=== PATIENT | female | born 1945 | race Caucasian/White ===

== ENCOUNTER 2017-03-29 20:31 | Inpatient (IN) ==
[2017-03-29] MEDS ORDERED: LR 1,000 ML IV PRN ×2 (20:48→20:56)
[2017-03-29 20:52] LABS: MANUAL DIFF NEEDED? NO
[2017-03-29] MEDS ORDERED: ZOFRAN IV ONE (20:56)
[2017-03-29 21:14] LABS: HEMOGLOBIN A1C 6.5 % (4.8-6.0)
[2017-03-29 21:20] LABS: ALBUMIN 4.1 g/dL (3.5-5.0); CALCIUM 8.8 mg/dL (8.8-10.2); POTASSIUM 4.9 mmol/L (3.5-5.1); TOTAL BILIRUBIN 0.7 mg/dL (0.20-1.00); TOTAL PROTEIN 6.4 g/dL (6.3-8.3)
[2017-03-29 21:21] LABS: BASO% 0.2 % (0.0-0.8); EOS# 0.07 X1000 (0.0-0.7); EOS% 0.7 % (0.0-10.0); HEMATOCRIT 32.1 % (37.0-47.0); HEMOGLOBIN 10.2 g/dL (12.0-16.0); IMM GRAN# 0.02 X1000 (0.0-0.04); IMM GRAN% 0.2 % (0.0-0.5); LYMPH# 0.29 X1000 (1.2-3.4); MCH 27.6 PG (27-31); MCHC 31.8 g/dL (33-37); MCV 86.8 FL (81-99); MONO# 0.36 X1000 (0.11-0.59); MONO% 3.8 % (1.7-9.3); MPV 12.2 FL (7.4-10.4); NEUT% 92.1 % (42.2-75.2); PLT 113 X1000 (130-400)
--- NOTE | 2017-03-29 22:15 | Diag Imaging Result Doc PS360 ---
EXAM: FLAT/UPRIGHT ABD/1 VIEW CHEST HISTORY: N/V TECHNIQUE: Three views COMPARISON: 08/10/2016 FINDINGS: Known mass in the left upper lobe. This has not increased in size. No infiltrates. No free air beneath the diaphragm. Marked atherosclerosis. The gallbladder has been removed. No organomegaly. Mild air distended loop of bowel mid right abdomen. Old injury to the right pelvis with prior orthopedic replacement of the left hip. Prominent degenerative spine changes with mild scoliosis. IMPRESSION: Mild air distended loop of bowel in the mid right abdomen may represent an ileus. Follow-up films recommended. Electronically signed by Gómez Nunez 03/29/2017 10:13 PM
[2017-03-29] MEDS ORDERED: LEVAQUIN 750 MG in NS 150 ML IV ONE (23:42)
[2017-03-29 23:49] LABS: BILIRUBIN URINE NEGATIVE (NEGATIVE); BLOOD URINE 4+ (NEGATIVE); CLARITY VERY CLOUDY (CLEAR); COLOR YELLOW; GLUCOSE URINE NEGATIVE (NEGATIVE); LEUKOCYTES URINE 2+ (NEGATIVE); NITRITE URINE NEGATIVE (NEGATIVE); PROTEIN URINE 2+(100 mg/dL) mg/dL (NEGATIVE); UROBILINOGEN URINE NORMAL
[2017-03-30] MEDS ORDERED: TYLENOL PO ONE (00:02)
[2017-03-30] MEDS ORDERED: ULTRAM PO ONE (00:02)
[2017-03-30 00:05] LABS: URINE CULTURE PL NEEDED? YES; URINE EPITHELIAL CELLS <10 /HPF (<10); URINE RBC 20-40 /HPF (<10); URINE WBC TNTC /HPF (<10)
[2017-03-30 00:06] LABS: URINE SOURCE CLEAN CATCH
[2017-03-30] MEDS ORDERED: NS 1,000 ML IV ONE (00:08)
[2017-03-30] MEDS ORDERED: ZOFRAN PO PRN (00:08)
--- NOTE | 2017-03-30 00:08 | PROVIDER DOCUMENTATION ---
This chart was entered by Maru Yuan Scribe, acting as scribe for Cuco Aguilera MD. HPI-Abdominal Pain/GI Problem - General Chief Complaint: Nausea/Vomiting Stated Complaint: n/v Time Seen by Provider: 03/29/17 20:47 Source: patient Allergies/Adverse Reactions: Patient Allergies Allergy/AdvReac Type Severity Reaction Status Date / Time Penicillins Allergy Intermediate HIVES Verified 03/29/17 20:42 latex Allergy HIVES Verified 03/29/17 20:42 Home Medications: Home Medication List Medication Instructions Recorded Confirmed Last Taken Type Furosemide 40 mg PO DAILY 01/14/13 08/10/16 03/29/17 History Spironolactone [Aldactone] 50 mg PO DAILY 01/14/13 08/10/16 03/29/17 History Lisinopril [Zestril] 2.5 mg PO DAILY 10/26/14 08/10/16 03/29/17 History Montelukast Sodium [Singulair] 10 mg PO QHS 10/26/14 08/15/16 03/29/17 History Warfarin [Coumadin] 5 mg PO QHS 10/26/14 08/10/16 03/29/17 History Ambrisentan [Letairis] 5 mg PO DAILY 08/10/16 08/10/16 03/29/17 History Atenolol 50 mg PO DAILY 08/10/16 08/10/16 03/29/17 History Cetirizine HCl [Zyrtec] 10 mg PO DAILY 08/10/16 08/10/16 03/29/17 History Paroxetine HCl [Paxil] 40 mg PO DAILY 08/14/16 08/14/16 03/29/17 History Tramadol [Ultram] 50 mg PO PRN PRN #30 tablet 08/15/16 03/29/17 Rx Alprazolam [Xanax] 0.25 mg PO BID 03/29/17 03/29/17 03/29/17 History Glipizide [Glucotrol] 5 mg PO DAILY 03/29/17 03/29/17 03/29/17 History Metformin HCl [Metformin HCl] 1,000 mg PO BID 03/29/17 03/29/17 03/29/17 History - History of Present Illness-ABD Nature of Presenting Problems: Pt is a 71 year old female who came to the ED with a cc of N/V/D and fever since this afternoon. Pt reports that she ate a tv dinner and felt fine. Pt reports she took a nap and woke up feverish and N/V/D. Pt reports last night she was having discomfort with urination. Abdominal Pain Onset Location: reports: suprapubic Pain Radiation: reports: no radiation Quality of Pain: reports: cramping Severity in ED: reports: mild Onset/Duration: reports: this evening Timing: reports: still present Associated Symptoms: reports: fever/chills, nausea, vomiting, weakness Dark Stools Present?: reports: none noticed Rectal Bleeding: reports: none Bruising or Bleeding Gums?: No Similar Symptoms Previously?: No Recently seen or treated by another doctor?: No Review of Systems - Adult - REVIEW OF SYSTEMS - ADULT Constitutional: reports: chills, fever. denies: fatique, weight loss Eyes: reports: no symptoms reported Ears, Nose, Mouth & Throat: reports: no symptoms reported Cardiovascular: reports: no symptoms reported Respiratory: reports: no symptoms reported Gastrointestinal: reports: abdominal pain, diarrhea, nausea, vomiting. denies: difficulty swallowing, frequent heartburn Genitourinary: reports: dysuria, urinary retention. denies: flank pain, hesitency Musculoskeletal: reports: no symptoms reported Integumentary: reports: no symptoms reported Neurological: denies: ataxia, paresthesia Psychiatric: reports: no symptoms reported Endocrine: reports: no symptoms reported Hematologic/Lymphatic: reports: no symptoms reported Allergic/Immunologic: reports: no symptoms reported All Other Systems: Reviewed and Negative Past History - Adult - PAST MEDICAL HISTORY-ADULT Review of Records: reports: Nursing Assessment Review Major Childhood Illnesses: reports: denies history Cardiovascular: reports: A-Fib, HTN, hyperlipidemia, [place] Respiratory: reports: asthma, COPD Gastrointestinal: reports: liver disease (cirrhosis of the liver) Obstetrical/Gynecological: reports: denies history Genitourinary: reports: kidney disease Musculoskeletal: reports: arthritis, fibromyalgia Neurological: reports: CVA (2000; 2012) Endocrine/Immune: reports: Diabetes Other Conditions: reports: cataract/glaucoma (cataract) - PRIOR SURGERIES/PROCEDURES Surgical/Procedure History: reports: cholecystectomy, , orthopedic ( extremity) (bunion removed from right foot; tumor removed from L shoulder), joint replacement (total hip replacement), other (cataract removal) - IMMUNIZATION STATUS Childhood Immunizations: UTD Flu Vaccine: UTD - FAMILY HISTORY Family History: reviewed, not pertinent Physical Exam-General - PHYSICAL EXAM-ADULT Initial Vital Signs Reviewed: Yes - CONSTITUTIONAL General Appearance: alert, no apparent distress - EYES Eyes: PERRL/EOMI, pink conjunctivae - HEAD, EARS, NOSE, MOUTH & THROAT HENMT: normocephalic/atraumatic, moist mucous membranes - NECK Neck: non-tender, full range of motion - RESPIRATORY Respiratory: chest non-tender, lungs clear - CARDIOVASCULAR Cardiovascular: systolic murmur (2/6), irregularly irregular - GASTROINTESTINAL (ABDOMEN) Abdominal Exam: normal bowel sounds, tenderness (suprapubic) - MUSCULOSKELETAL Back Exam: normal inspection, no CVA tenderness Extremity: normal range of motion, non-tender - SKIN Integumentary: normal color, normal turgor - NEUROLOGIC Neurologic: grossly normal - PSYCHIATRIC Psych/Mental Status: normal mood/affect, normal thought content, normal thought process, oriented x 3 Progress - PLAN OF CARE/RESULTS Progress/Plan/Lab Results: Vital Signs - 8 hr 03/29/17 20:34 Temperature 101.4 F H Pulse Rate 111 H Respiratory Rate 22 Blood Pressure 112/061 O2 Sat by Pulse Oximetry 96 Orders Category Date Time Status FLAT/UPRIGHT ABD/1 VIEW CHEST [RAD] Stat Exams 03/29/17 20:49 Ordered A1C HGB W EST AVG GLUCOSE [CHEM] Stat Lab 03/29/17 20:40 Received BLOOD CULTURE [BLDCUL] Stat Lab 03/29/17 20:57 Ordered CBC WITH DIFF [HEME] Stat Lab 03/29/17 20:40 Results COMPREHENSIVE METABOLIC PANEL [CHEM] Stat Lab 03/29/17 20:[address] W/POSS RFLX CULT [URINALYSIS] Stat Lab 03/29/17 20:49 Uncollected Lactated Ringers Inj [Lr] 1,000 ml Med 03/29/17 20:48 Discontinued IV 100 mls/hr Lactated Ringers Inj [Lr] 1,000 ml Med 03/29/17 20:56 Active IV 250 mls/hr Ondansetron [Zofran] Med 03/29/17 20:56 Discontinued 4 mg IV NOW ONE Result Diagrams: 03/29/17 20:40 06/11/17 20:40 - XRAY 1 XRAY Study: Chest (STABLE CHEST. LEFT LOWER LOBE HAZINESS POSSIBLE INFILTRATE) Departure - Departure Date of Disposition Decision: 03/30/17 Time of Disposition Decision: 00:07 DIAGNOSIS: Pyelonephritis, acute Disposition: ADMITTED INPATIENT 09 Certified Medical Emergency: Emergent Condition: Stable Referrals and Follow-Ups: None,PCP [Primary Care Provider] - - Critical Care Note This patient required my direct & personal management of CC.: No This chart was documented by the indicated scribe, (Maru Yuan Scribe) and accurately reflects the services I performed and decisions made by me, Cuco Aguilera MD, as attested by the provider's signature.
[2017-03-30] MEDS ORDERED: LEVAQUIN 750 MG/D5W 750 MG/150 ML IVPB ONE (00:10)
[2017-03-30 00:28] LABS: INR 2.34 (0.86-1.15); PROTIME 25.7 Seconds (12.1-15.5)
[2017-03-30 00:31] LABS: PTT PL 34.9 Seconds (22.6-43.9)
[2017-03-30] MEDS ORDERED: LEVAQUIN 750 MG/D5W 750 MG/150 ML IVPB IV ONE (01:00)
[2017-03-30] MEDS ORDERED: NS 500 ML IV ONE (01:29)
[2017-03-30] MEDS ORDERED: NS 1,000 ML ONE ×2 (02:43→08:15)
[2017-03-30] MEDS: TYLENOL PO PRN ×2 (06:31→17:40)
[2017-03-30 07:18] LABS: HEMATOCRIT 26.8 % (37.0-47.0); HEMOGLOBIN 8.5 g/dL (12.0-16.0); MCH 27.8 PG (27-31); MCHC 31.7 g/dL (33-37); MCV 87.6 FL (81-99); MPV 11.9 FL (7.4-10.4); RBC 3.06 XMIL (4.2-5.4)
[2017-03-30 07:39] LABS: ALBUMIN 3.4 g/dL (3.5-5.0); CALCIUM 7.9 mg/dL (8.8-10.2); MAGNESIUM 1.8 mg/dL (1.5-2.7); POTASSIUM 5.6 mmol/L (3.5-5.1); TOTAL BILIRUBIN 1.1 mg/dL (0.20-1.00); TOTAL PROTEIN 5.3 g/dL (6.3-8.3)
[2017-03-30] MEDS: NS 1,000 ML IV SCH ×2 (08:37→17:11)
[2017-03-30] MEDS ORDERED: ZOFRAN ODT PO PRN (10:07)
[2017-03-30] MEDS: PROTONIX IV SCH ×2 (11:47→23:03)
[2017-03-30] MEDS: SODIUM CHLORIDE 0.9% INJ SCH ×2 (11:47→23:03)
--- NOTE | 2017-03-30 16:01 | HISTORY AND PHYSICAL ---
CHIEF COMPLAINT: Nausea, vomiting, diarrhea. HISTORY OF PRESENT ILLNESS: This is a 71-year-old female who presented to the emergency room complaining of 7 episodes of nausea, vomiting and diarrhea 4-6 hours prior to coming to the emergency room. She states that she woke up after a nap and felt feverish and then symptoms began. She did state that over the last 4-5 days that she has had burning on urination as well as some frequency and urgency. She did state that it feels like her UTI symptoms in the past. She was found to have a creatinine of 1.9 with a white count of 9.5, although she did have a temperature of 101.4 degrees on arrival. Blood cultures and urine cultures were obtained in the emergency room as well as an abdominal x-ray that revealed a mild air distended loop of bowel in the mid right abdomen that could represent an ileus. She was given IV hydration as well as Levaquin and is admitted for further evaluation and treatment. PAST MEDICAL HISTORY: Pulmonary hypertension, [place], CVA, hypertension, diabetes type 2, hyperlipidemia and history of cirrhosis in the past. PAST SURGICAL HISTORY: A skin tumor removed from her back, cholecystectomy, left hip replacement. ALLERGIES: Penicillin. CURRENT MEDICATIONS: A list will be obtained. SOCIAL HISTORY: She denies alcohol, tobacco, or illicit drug use. She does have a history of alcohol use but she quit about 10 years ago. REVIEW OF SYSTEMS: Otherwise negative with positives stated in the HPI. PHYSICAL EXAMINATION: GENERAL: This is a 71-year-old female who is lying in the bed in no distress. HEENT: Head is normocephalic, atraumatic. Pupils equal, round, react to light. EOMs are intact. Sclerae anicteric. Mucous membranes are dry. NECK: Supple with trachea midline. CARDIOVASCULAR: Regular rate and rhythm, S1, S2 appreciated. PULMONARY: Breath sounds are clear with no increased work of breathing noted. GASTROINTESTINAL: Abdomen is soft, nontender, nondistended with bowel sounds in all 4 quadrants. EXTREMITIES: No clubbing, cyanosis, or edema. Calves are nontender. Pulses are palpable x4. NEUROLOGIC: She is alert and oriented x3 with cranial nerves 2-12 grossly intact. : Fu is patent to bedside bag with urine clear yellow. SKIN: Warm and dry. DIAGNOSTICS: WBC is 9.5 with hemoglobin 10.2, hematocrit 32.1 and platelets of 113,000. INR is 2.34. Sodium is 135, potassium 4.9, BUN 63, creatinine 1.9 with a glucose of 281. Hemoglobin A1c is 6.5 with urinalysis microscopic 20-40 red blood cells, too numerous to count white blood cells and 4+ bacteria. Abdominal x-ray revealed a mild air distended loop of bowel in the mid right abdomen which may represent an ileus. Chest x-ray, known mass in the left upper lobe that is not increased in size. No infiltrate. ASSESSMENT AND PLAN: 1. Nausea, vomiting and diarrhea. 2. Fever. 3. Hypotension. 4. Probable urinary tract infection. 5. Anemia. Questionable blood loss. 6. Hyponatremia. 7. Acute kidney injury. PLAN: The patient has been admitted to the hospital. We placed on telemetry. She has no abdominal pain. She has had 1 bowel movement since arrival. Will go ahead and give clear liquids and advance as tolerated. As she does have a low hemoglobin and hematocrit will Hemoccult stools. Urine culture is pending. She was given Levaquin in the emergency room. The patient denied any black or bloody stools or vomitus although the daughter did state the patient told her that she had black vomitus prior to coming to the emergency room. Anyway will monitor. We will give IV hydration. Will obtain a CBC at 4 o'clock today and then check in the morning. Will give IV hydration. The patient states that she does get yeast and had stomach problems taking any antibiotics. We will start her on probiotics twice a day. She does chronically take Xanax. We will continue this dose to avoid any withdrawal. She is on warfarin, will hold warfarin at present. She will be placed on pattern blood glucose with sliding scale insulin. Will hold all antihypertensives as well as antidiabetic medications as she is not eating at present. Further treatments pending hospital course. Dictated by YOLANDE Mckeon for Arnoldo Chan MD cc: YOLANDE Mckeon MD
[2017-03-30 16:42] LABS: BASO% 0.1 % (0.0-0.8); EOS# 0.12 X1000 (0.0-0.7); EOS% 1.5 % (0.0-10.0); HEMATOCRIT 28.1 % (37.0-47.0); HEMOGLOBIN 8.9 g/dL (12.0-16.0); IMM GRAN# 0.01 X1000 (0.0-0.04); IMM GRAN% 0.1 % (0.0-0.5); LYMPH# 0.62 X1000 (1.2-3.4); LYMPH% 7.8 % (20.5-51.1); MANUAL DIFF NEEDED? YES; MCHC 31.7 g/dL (33-37); MCV 88.4 FL (81-99); MONO# 0.32 X1000 (0.11-0.59); MPV 11.9 FL (7.4-10.4); NEUT% 86.5 % (42.2-75.2); PLT 74 X1000 (130-400); RBC 3.18 XMIL (4.2-5.4)
[2017-03-30 16:48] LABS: EOS 2 % (1-10); LYMPHS 9 % (21-51); MONO 4 % (1-9)
[2017-03-30] MEDS ORDERED: LEVAQUIN 500 MG in NS 100 ML IV SCH (23:00)
[2017-03-30] MEDS: CULTURELLE PO SCH (23:03)
[2017-03-30] MEDS: XANAX PO PRN (23:03)
[2017-03-31] MEDS: TYLENOL PO PRN (02:22)
[2017-03-31] MEDS: NS 1,000 ML IV SCH (02:24)
[2017-03-31 05:48] LABS: MANUAL DIFF NEEDED? NO
[2017-03-31 06:01] LABS: BASO% 0.2 % (0.0-0.8); EOS# 0.17 X1000 (0.0-0.7); EOS% 2.7 % (0.0-10.0); HEMATOCRIT 29.6 % (37.0-47.0); HEMOGLOBIN 9.3 g/dL (12.0-16.0); IMM GRAN# 0.01 X1000 (0.0-0.04); IMM GRAN% 0.2 % (0.0-0.5); LYMPH% 10.9 % (20.5-51.1); MCH 27.7 PG (27-31); MCHC 31.4 g/dL (33-37); MCV 88.1 FL (81-99); MONO# 0.26 X1000 (0.11-0.59); MONO% 4.1 % (1.7-9.3); MPV 12.1 FL (7.4-10.4); NEUT% 81.9 % (42.2-75.2); PLT 75 X1000 (130-400); RBC 3.36 XMIL (4.2-5.4)
[2017-03-31 06:04] LABS: INR 2.14 (0.86-1.15)
[2017-03-31 06:19] LABS: CALCIUM 8.2 mg/dL (8.8-10.2); POTASSIUM 4.7 mmol/L (3.5-5.1)
--- NOTE | 2017-03-31 07:57 | PROGRESS NOTE ---
DATE: 03/31/2017 SUBJECTIVE: The patient notes that she had a bad night. States that she is having cold chills in her hair. States that she had an episode where she became overstimulated last night and became anxious and her heart rate elevated to 99. Otherwise, she denies any nausea, vomiting. Denies any dysuria, urinary frequency. Denies any constipation. OBJECTIVE: Vital Signs: Temperature 98.4, pulse 90, blood pressure 115/55, saturation 98% on room air. General: Patient is awake, alert. She is currently in no respiratory distress. She was on telemetry last night during the episode and she had no further events and no electrical dysrhythmia. HEENT: Normocephalic, atraumatic. SHERMAN. EOMI. Neck: Supple. CV: Regular rate. Chest: Clear. Abdomen: Soft. Extremities: Moves all extremities. Neurologic: No changes. ASSESSMENT: 1. Nausea and vomiting. Will advance diet. 2. Fever. The patient has not had any fever since in the hospital. 3. Urinary tract infection. Her urine culture is still pending. 4. Anemia. Hemoglobin and hematocrit is improved at 9.3 and 29. Uncertain etiology of her current anemia. She certainly will need to have a gastrointestinal workup as an outpatient. 5. [id number] renal failure, stable. 6. Hyperkalemia, resolved. PLAN: We will saline lock. Change her diet to regular. Change her to p.o. Levaquin and follow. Hopefully home this afternoon. Certainly if not by tomorrow. cc: Arnoldo Chan MD
[2017-03-31] MEDS: PRINIVIL PO SCH (09:30)
[2017-03-31] MEDS: TENORMIN PO SCH (09:31)
[2017-03-31] MEDS: GLUCOPHAGE PO SCH ×2 (09:31→17:51)
[2017-03-31] MEDS: PAXIL PO SCH (09:31)
[2017-03-31] MEDS: XANAX PO PRN ×2 (09:32→21:16)
[2017-03-31] MEDS: CULTURELLE PO SCH ×2 (09:32→21:16)
[2017-03-31] MEDS: PROTONIX IV SCH ×2 (12:49→23:03)
[2017-03-31] MEDS: PATIENT'S OWN MED PO SCH (12:49)
[2017-03-31] MEDS: COUMADIN PO SCH (21:16)
[2017-03-31] MEDS: LEVAQUIN PO SCH (21:16)
[2017-03-31] MEDS: SINGULAIR PO SCH (21:16)
[2017-03-31] MEDS: ULTRAM PO PRN (21:16)
[2017-04-01 06:21] LABS: INR 1.65 (0.86-1.15); PROTIME 19.7 Seconds (12.1-15.5)
[2017-04-01] MEDS: GLUCOPHAGE PO SCH ×2 (08:58→16:48)
[2017-04-01] MEDS: CULTURELLE PO SCH ×2 (08:59→20:47)
[2017-04-01] MEDS: PAXIL PO SCH (08:59)
[2017-04-01] MEDS: PRINIVIL PO SCH ×2 (08:59→09:12)
[2017-04-01] MEDS: PATIENT'S OWN MED PO SCH ×2 (09:00→16:49)
[2017-04-01] MEDS: TENORMIN PO SCH (09:00)
[2017-04-01] MEDS: SODIUM CHLORIDE 0.9% INJ SCH (10:23)
[2017-04-01] MEDS: PROTONIX IV SCH ×2 (10:23→22:36)
[2017-04-01 10:43] LABS: OCCULT BLOOD 1 NEGATIVE (NEGATIVE)
--- NOTE | 2017-04-01 14:05 | PROGRESS NOTE ---
DATE: 04/01/2017 SUBJECTIVE: The patient states that she did not sleep well last night. She is uncomfortable in this bed. She denied any nausea, vomiting, any dysuria, any hematuria, diarrhea or constipation. OBJECTIVE: Vital Signs: Blood pressure is 135/56 with a heart rate of 82, respirations are 20, temperature is 98 degrees, with room air saturations of 95%-96%. Cardiovascular: Regular rate and rhythm. S1 and S2 appreciated. Pulmonary: Breath sounds are clear with no increased work of breathing noted. Gastrointestinal: Soft, nontender, nondistended, with bowel sounds in all 4 quadrants. Neurologic: She is alert and oriented. Extremities: No clubbing, cyanosis, or edema. Calves are nontender. Pulses are palpable x4. LABS: INR is 1.65. Blood glucose is ranging from 173 to 236. Microbiology: Urine culture is gram-positive cocci with sensitivities to follow. ASSESSMENT: 1. Nausea and vomiting. She has had no further nausea and vomiting since admission. Her diet has been advanced to regular diet which she has tolerated well. 2. Fevers. She remains afebrile since admission. 3. Urinary tract infection, gram positive cocci with sensitivities pending. 4. Anemia. Hemoglobin and hematocrit is stable. 5. Acute on chronic renal failure. This is stable. 6. Hyperkalemia. Resolved. We will continue with the current treatment. Continue with Levaquin p.o. Once sensitivities returned, antibiotics may be changed as appropriate and she can be discharged home on the appropriate antibiotic coverage. Dictated by YOLANDE Mckeon for Arnoldo Chan MD cc: YOLANDE Mckeon MD
[2017-04-01] MEDS: COUMADIN PO SCH (20:46)
[2017-04-01] MEDS: SINGULAIR PO SCH (20:47)
[2017-04-01] MEDS: LEVAQUIN PO SCH (20:47)
[2017-04-01] MEDS: XANAX PO PRN (20:48)
[2017-04-01] MEDS: ULTRAM PO PRN (20:48)
[2017-04-02 06:43] LABS: INR 1.64 (0.86-1.15); PROTIME 19.6 Seconds (12.1-15.5)
[2017-04-02] MEDS: GLUCOPHAGE PO SCH (08:48)
[2017-04-02] MEDS: PATIENT'S OWN MED PO SCH (08:49)
[2017-04-02] MEDS: PAXIL PO SCH (08:49)
[2017-04-02] MEDS: CULTURELLE PO SCH (08:49)
[2017-04-02] MEDS: TENORMIN PO SCH (08:49)
[2017-04-02] MEDS: PROTONIX IV SCH (11:01)
[2017-04-02] MEDS: SODIUM CHLORIDE 0.9% INJ SCH (11:01)
[2017-04-02 12:28] VITALS: BP 125/45
--- NOTE | 2017-04-02 18:08 | DISCHARGE SUMMARY ---
ADMISSION DATE: 03/30/2017 DISCHARGE DATE: 04/02/2017 DIAGNOSES: 1. Nausea, vomiting and diarrhea, resolved. 2. Fever resolved. 3. Hypotension resolved. 4. Strep agalactiae group B urinary tract infection. 5. Anemia with questionable blood loss. 6. Hyponatremia, resolved. 7. Acute kidney injury, resolved. 8. Reported blood in stool. DIAGNOSTICS: 1. On 03/29/2017, abdominal x-ray revealed a possible ileus. 2. Chest x-ray revealed a known mass in the left upper lobe, that has not increased in size. 3. Microbiology: Blood cultures x2 revealed no growth after 48 hours and urine culture strep agalactiae. HOSPITAL COURSE: Ms. Juárez presented to the emergency room complaining of nausea, vomiting and diarrhea that started about 4 hours prior to coming to the emergency room. She states she woke up from a nap feverish and the symptoms began. She was found to have a temperature of 101.4 on arrival with blood pressures in the 80s to 90s. She was given IV gentle hydration. We continued her on appropriate home medications. She was given Levaquin for antibiotic coverage. She had no further diarrhea after admission. She did have a bowel movement and she stated that there was red on the toilet tissue, although stool was occult negative. She had no melena. We did trend her hemoglobin and hematocrit which stayed 8.9-10.2 and 28-32. She remained in sinus rhythm throughout the hospitalization. At one time, the patient did have some blood in and around her vagina. Her daughter Maria E was present at this time. They both stated that she has had a history of vaginal bleeding and that she has followed up with a lithograph operator in [place]. Maria E stated she went with her to one appointment and she does have an upcoming appointment. She has been encouraged to keep this appointment. She is established with Dr. Dye in Gastroenterology, stating that he has done an EGD and colonoscopy on her in the past. On discussion of blood on the tissue when she wipes, she states that she thinks that she might have been diagnosed with hemorrhoids in the past. She has been encouraged to follow up with Dr. Dye for further evaluation. We have asked the nursing staff to make a follow up appointment prior to discharge. DISCHARGE MEDICATIONS: Ultram 50 mg q.6 hours p.r.n., Lasix 40 mg p.o. daily. Zyrtec 10 daily, Xanax 0.25 three times a day p.r.n., Glucotrol 5 b.i.d., Flonase 1 spray at bedtime, Coumadin 7.5 p.o. at bedtime, atenolol 50 mg daily, Letairis 5 mg daily, Singulair 10 at bedtime, Paxil 40 daily. Levaquin 500 mg p.o. daily for 7 days. PLAN: 1. She has been instructed to hold her lisinopril until she follows up with Dr. Miller. 2. She is instructed to discontinue her Aldactone until followed up with Dr. Miller. 3. She needs to have her INR checked on Thursday, as she is being given Levaquin and this can increase her INR. She is being discharged home in stable condition with family members. TIME SPENT: This is a greater than 30 minute discharge. Dictated by YOLANDE Mckeon for Arnoldo Chan MD cc: YOLANDE Mckeon MD
== END 2017-04-02 14:51 | disposition home health service (06) ==
LOC: P.ED 20:31 → P.MEDSURG 03-30 00:40
PROVIDERS: ATTEND Family Medicine

== ENCOUNTER 2017-05-07 07:55 | Inpatient (IN) ==
--- NOTE | 2017-05-07 08:25 | EKG Report ---
Test Performed on : 05/07/2017 08:20:24 AM Test Reason : CP Blood Pressure : / mmHG Vent. Rate : 069 BPM Atrial Rate : 083 BPM P-R Int : 000 ms QRS Dur : 146 ms QT Int : 488 ms P-R-T Axes : 000 133 088 degrees QTc Int : 522 ms Undetermined rhythm Indeterminate axis Left bundle branch block Abnormal ECG When compared with ECG of 29-OCT-2014 12:05, Current undetermined rhythm precludes rhythm comparison, needs review QRS axis shifted right QT has lengthened Unconfirmed Result
--- NOTE | 2017-05-07 08:53 | PROVIDER DOCUMENTATION ---
HPI-General Adult - General Chief Complaint: Weakness Stated Complaint: weakness Time Seen by Provider: 05/07/17 08:45 Source: patient Allergies/Adverse Reactions: Patient Allergies Allergy/AdvReac Type Severity Reaction Status Date / Time Penicillins Allergy Intermediate HIVES Verified 05/07/17 07:58 latex Allergy HIVES Verified 05/07/17 07:58 Home Medications: Home Medication List Medication Instructions Recorded Confirmed Last Taken Type Montelukast Sodium [Singulair] 10 mg PO QHS 10/26/14 05/07/17 03/29/17 History Ambrisentan [Letairis] 5 mg PO DAILY 08/10/16 05/07/17 03/29/17 History Atenolol 50 mg PO DAILY 08/10/16 05/07/17 03/29/17 History Paroxetine HCl [Paxil] 40 mg PO DAILY 08/14/16 05/07/17 03/29/17 History Alprazolam [Xanax] 0.25 mg PO TID PRN 03/29/17 05/07/17 03/29/17 History Glipizide [Glucotrol] 5 mg PO BID 03/29/17 05/07/17 03/29/17 History Metformin HCl 1,000 mg PO BID 03/29/17 05/07/17 03/29/17 History Menthol/Aloe Vera Extract [Icy Hot 1 applicatn TOP PRN PRN 03/30/17 05/07/17 Unknown History 16% Power Gel] Fluticasone 50 Mcg Nasal [place] 1 spray DONALD HS 03/31/17 05/07/17 03/29/17 21:00 History [Flonase] Warfarin [Coumadin] 7.5 mg PO HS 03/31/17 05/07/17 03/28/17 21:00 History Cetirizine [Zyrtec] 10 mg PO DAILY 04/01/17 05/07/17 Unknown History Dextrose [Glucose] 1 each PO DAILY PRN PRN 04/01/17 05/07/17 Unknown History Furosemide [Lasix] 40 mg PO DAILY 04/01/17 05/07/17 Unknown History Iron,Carbonyl/Ascorbic Acid [Fe C 1 each PO DAILY 04/01/17 05/07/17 Unknown History Tablet] Multivit-Min/Iron/Folic/Lutein 1 each PO DAILY 04/01/17 05/07/17 Unknown History [Centrum Silver Women Tablet] Tramadol [Ultram] 50 mg PO Q6H PRN PRN 04/01/17 05/07/17 Unknown History Lisinopril [Lisinopril] 1 tab PO DAILY 05/07/17 05/07/17 Unknown History Nitrofurantoin Monohyd/M-Cryst 100 mg PO BID 05/07/17 05/07/17 Unknown History [Nitrofurantoin [place]-Mcr 100 mg] - History of Present Illness -Gen Adult Nature of Presenting Problems: Pt fell this morning. She says that whenever she has a UTI she gets to feel weak. her BS was 46 and she is now having breakfast. Review of Systems - Adult - REVIEW OF SYSTEMS - ADULT Constitutional: denies: chills, fever Eyes: denies: discharge, blurred vision Ears, Nose, Mouth & Throat: denies: ear discharge, sinus problem Cardiovascular: denies: chest pain, heart murmur Respiratory: denies: cough, pleurisy Gastrointestinal: denies: abdominal pain, difficulty swallowing Genitourinary: denies: dysuria, frequent UTI's Musculoskeletal: denies: bone pain, joint pain Integumentary: denies: hives, mole changes Neurological: denies: ataxia, paresthesia Psychiatric: reports: no symptoms reported. denies: anti-depressant use Endocrine: reports: other (wekness/ hypoglycemia) Hematologic/Lymphatic: reports: no symptoms reported Allergic/Immunologic: reports: no symptoms reported Past History - Adult - PAST MEDICAL HISTORY-ADULT Review of Records: reports: Nursing Assessment Review, Medications Reviewed Major Childhood Illnesses: reports: denies history Cardiovascular: reports: A-Fib, HTN, hyperlipidemia, [place] Respiratory: reports: asthma, COPD Gastrointestinal: reports: liver disease (cirrhosis of the liver) Obstetrical/Gynecological: reports: denies history Genitourinary: reports: kidney disease Musculoskeletal: reports: arthritis, fibromyalgia Neurological: reports: CVA (2000; 2012) Endocrine/Immune: reports: Diabetes Other Conditions: reports: cataract/glaucoma (cataract) - PRIOR SURGERIES/PROCEDURES Surgical/Procedure History: reports: cholecystectomy, , orthopedic ( extremity) (bunion removed from right foot; tumor removed from L shoulder), joint replacement (total hip replacement), other (cataract removal) - IMMUNIZATION STATUS Childhood Immunizations: UTD Flu Vaccine: UTD - FAMILY HISTORY Family History: reviewed, not pertinent Physical Exam-General - PHYSICAL EXAM-ADULT Initial Vital Signs Reviewed: Yes - CONSTITUTIONAL General Appearance: appears well, alert, no apparent distress - EYES Eyes: PERRL/EOMI, pink conjunctivae - HEAD, EARS, NOSE, MOUTH & THROAT HENMT: normocephalic/atraumatic, moist mucous membranes, normal ENT inspection - NECK Neck: non-tender, full range of motion, supple, normal inspection - RESPIRATORY Respiratory: chest non-tender, lungs clear, normal breath sounds, no pleuratic chest pain, no respiratory distress, no accessory muscle use - CARDIOVASCULAR Cardiovascular: normal peripheral pulses, regular rate, rhythm, no edema, no gallop, no JVD, no murmur - GASTROINTESTINAL (ABDOMEN) Abdominal Exam: normal bowel sounds, non tender, soft, no organomegaly, no pulsatile mass, abdominal bruit - LYMPHATIC Lymphatic: no adenopathy - MUSCULOSKELETAL Back Exam: normal inspection, no CVA tenderness, no vertebral tenderness, CVA tenderness Extremity: normal range of motion, non-tender, normal gait, normal inspection, no pedal edema, no calf tenderness, normal capillary refill - SKIN Integumentary: normal color, normal turgor, warm/dry - PSYCHIATRIC Psych/Mental Status: normal mood/affect, normal thought content, normal thought process, oriented x 3 Progress - PLAN OF CARE/RESULTS Progress/Plan/Lab Results: Vital Signs - 8 hr 05/07/17 07:55 05/07/17 08:11 Temperature 97.5 F L Pulse Rate 76 Respiratory Rate 18 Blood Pressure 108/62 O2 Sat by Pulse Oximetry 94 L Laboratory Results - last 24 hr 05/07/17 08:16 POC Glucose 46 L D Orders Category Date Time Status Cardiac Monitoring DIRECTED Care 05/07/17 08:06 Active Oxygen Therapy- ED Nursing DIRECTED Care 05/07/17 08:06 Active Saline Loc NOW Care 05/07/17 08:06 Active CHEST-2 VIEWS [RAD] Stat Exams 05/07/17 08:06 Ordered CBC WITH ELECTRONIC DIFF [HEME] Stat Lab 05/07/17 08:33 Results CK PROFILE [SP CHEM] Stat Lab 05/07/17 08:33 Received COMPREHENSIVE METABOLIC PANEL [CHEM] Stat Lab 05/07/17 08:33 Received D-DIMER PL [COAG] Stat Lab 05/07/17 08:33 Stop Req MAGNESIUM [CHEM] Stat Lab 05/07/17 08:33 Received PRO B-NATRIURETIC PEPTIDE Stat Lab 05/07/17 08:[address] Received [address]IME WITH INR PL [COAG] Stat Lab 05/07/17 08:33 Stop Req PROTIME WITH INR PL [COAG] Stat Lab 05/07/17 08:[address] [COAG] Stat Lab 05/07/17 08:33 Stop Req TROPONIN T Stat Lab 05/07/17 08:33 Received EKG [EKG] Stat Ther 05/07/17 08:06 Draft Result Diagrams: 05/07/17 08:33 05/07/17 08:33 - REASSESSMENT Reassessment #1 Time Reassessed: 11:01 Status: unchanged (pt has not had glipizide for 24 hours and is still hypoglycemic.) - CONSULTS/PCP/HOSPITALIST Notification #1 *Consult/PCP/Hospitalist*: Dr Giles Time Discussed: 11:55 Consult Disposition: Admit (wants to stop metformin as well as glipizide) Departure - Departure Date of Disposition Decision: 05/07/17 Time of Disposition Decision: 11:56 DIAGNOSIS: Hypoglycemia due to type 2 diabetes mellitus, Renal insufficiency UTI (urinary tract infection) Qualifiers: Urinary tract infection type: site unspecified Hematuria presence: without hematuria Qualified Code(s): N39.0 - Urinary tract infection, site not specified Disposition: ADMITTED INPATIENT 09 Certified Medical Emergency: Emergent Condition: Stable Referrals and Follow-Ups: Krystal Miller MD [Primary Care Provider] - - Critical Care Note This patient required my direct & personal management of CC.: No
[2017-05-07 08:56] LABS: BASO% 0.1 % (0.0-0.8); EOS# 0.05 X1000 (0.0-0.7); EOS% 0.6 % (0.0-10.0); HEMATOCRIT 31.3 % (37.0-47.0); HEMOGLOBIN 9.7 g/dL (12.0-16.0); IMM GRAN# 0.02 X1000 (0.0-0.04); IMM GRAN% 0.2 % (0.0-0.5); LYMPH# 0.22 X1000 (1.2-3.4); LYMPH% 2.5 % (20.5-51.1); MCH 27.6 PG (27-31); MCV 89.2 FL (81-99); MONO% 3.4 % (1.7-9.3); MPV 12.5 FL (7.4-10.4); NEUT% 93.2 % (42.2-75.2); PLT 103 X1000 (130-400); RBC 3.51 XMIL (4.2-5.4)
[2017-05-07 09:10] LABS: INR 2.45 (0.86-1.15); PROTIME 26.6 Seconds (12.1-15.5)
[2017-05-07 09:11] LABS: PTT PL 52.2 Seconds (22.6-43.9)
[2017-05-07 09:12] LABS: ALBUMIN 3.9 g/dL (3.5-5.0); CALCIUM 8.7 mg/dL (8.8-10.2); MAGNESIUM 2.2 mg/dL (1.5-2.7); POTASSIUM 4.8 mmol/L (3.5-5.1); TOTAL BILIRUBIN 1.9 mg/dL (0.20-1.00); TOTAL PROTEIN 6.5 g/dL (6.3-8.3)
[2017-05-07 09:16] LABS: MANUAL DIFF NEEDED? NO
--- NOTE | 2017-05-07 09:50 | Diag Imaging Result Doc PS360 ---
EXAM: CHEST-2 VIEWS HISTORY: CP TECHNIQUE: PA and Lateral chest x-ray COMPARISON: 03/29/2017 FINDINGS: There is a known left upper lobe parenchymal nodule which measures 2.6 cm and appears slightly larger than on the prior study and considerably larger than the prior study 10/29/2014. Malignancy is not excluded. There is cardiomegaly. There is increased opacity at the right lung base with an appearance most consistent with atelectasis, less likely pneumonia. There is a small right effusion. There is kyphoplasty change mid thoracic spine. IMPRESSION: Apparent slight increase in size of known left upper lobe parenchymal nodule. Malignancy is not excluded. Developing atelectasis or infiltrate right lower lobe with small right effusion. Cardiomegaly. Electronically signed by Latia Corral 05/07/2017 9:47 AM
[2017-05-07] MEDS ORDERED: D5W 1,000 ML IV ONE (10:43)
[2017-05-07] MEDS ORDERED: D5W 1,000 ML ONE (11:03)
[2017-05-07] MEDS ORDERED: MACROBID PO SCH (11:15)
[2017-05-07 13:22] LABS: BILIRUBIN URINE NEGATIVE (NEGATIVE); BLOOD URINE 4+ (NEGATIVE); CLARITY VERY CLOUDY (CLEAR); COLOR YELLOW; GLUCOSE URINE NEGATIVE (NEGATIVE); LEUKOCYTES URINE 2+ (NEGATIVE); NITRITE URINE NEGATIVE (NEGATIVE); PROTEIN URINE 1+(30 mg/dL) mg/dL (NEGATIVE); SP GRAVITY URINE 1.015; UROBILINOGEN URINE NORMAL
[2017-05-07 13:23] LABS: URINE WBC TNTC /HPF (<10)
[2017-05-07 13:24] LABS: URINE CAST NONE SEEN /LPF; URINE CRYSTAL NONE SEEN /HPF; URINE CULTURE PL NEEDED? YES; URINE EPITHELIAL CELLS <10 /HPF (<10); URINE RBC <10 /HPF (<10); URINE SMALL ROUND CELLS TRANSITIONAL PRESENT; URINE SOURCE CLEAN CATCH
[2017-05-07] MEDS ORDERED: ZOFRAN IV PRN (14:13)
[2017-05-07] MEDS ORDERED: PATIENT'S OWN MED TOP PRN (14:13)
[2017-05-07] MEDS ORDERED: TYLENOL PO PRN (14:13)
[2017-05-07] MEDS ORDERED: D5 NS 1,000 ML IV SCH (14:13)
[2017-05-07] MEDS ORDERED: D50W SYRINGE IV ONE (16:53)
--- NOTE | 2017-05-07 17:01 | Diag Imaging Result Doc PS360 ---
EXAM: LUNG SCAN / VQ HISTORY: elevated ddimer TECHNIQUE: Ventilation/perfusion lung scan 6.1 mCi of technetium 99m MAA for the perfusion portion and 39.8 mCi of technetium 99m DTPA aerosol for the ventilation portion. COMMENT: There is no evidence of ventilation/perfusion mismatch. There are no absolute perfusion defects. IMPRESSION: Normal study. Electronically signed by Seymour Hutson 05/07/2017 4:58 PM
[2017-05-07] MEDS: ROCEPHIN 1 GM/NS 1 GM/50 ML IVPB IV SCH (17:07)
--- NOTE | 2017-05-07 17:55 | HISTORY AND PHYSICAL ---
PRIMARY CARE PHYSICIAN: Dr. Krystal Miller. MANAGING JEWELER: CHIEF COMPLAINT: A fall x2 this morning, shortness of breath and weakness. HISTORY OF PRESENTING ILLNESS: This is a 71-year-old female who states that she got up to use the bathroom this morning at the assisted living facility she is at. Went to the bathroom and fell in the bathroom. She pulled the emergency light and staff came and assisted her back to bed. She refused any medical treatment at that time. Stated she was feeling okay. She went back to sleep for a little while and when she got up to go to the bathroom later this morning she has had her legs were weak and just gave out. She again called for medical professionals and stated that she felt like she needed to come to the emergency room for evaluation. When she arrived, she was noted to have a blood sugar of 37 via her CMP. She also has had a urinalysis that showed 2+ white blood cells, 4+ bacteria. States that she was currently being treated for an UTI recently by her primary care physician and had been placed on Macrodantin. Also her laboratory data showed a BUN of 68 with a creatinine of 2.4. She had a proBNP of 13,572. She has been given IV fluids of D5W in the emergency room and now will be on D5 NS at 125. She was also noted to have an elevation in her D-dimer at 4.62 but it is noted that she is currently anticoagulated on Coumadin with an INR of 2.45 so we will do a V/Q scan. She will be admitted for further evaluation and treatment. PAST MEDICAL HISTORY: Of pulmonary hypertension and [place], CVA, hypertension, diabetes type 2, hyperlipidemia and cirrhosis. PAST SURGICAL HISTORY: Cholecystectomy and a left hip replacement. FAMILY HISTORY: Noncontributory. SOCIAL HISTORY: She currently lives alone at [facility]. Denies any tobacco, alcohol, or illicit drug use. ALLERGIES: Penicillin and latex. HOME MEDICATIONS: We will hold the following: Glucose tablet p.o. daily p.r.n. Lasix 40 mg p.o. daily. Glipizide 5 mg p.o. b.i.d. Lisinopril 2.5 mg p.o. daily and metformin 1000 mg p.o. b.i.d. We will continue her Xanax 0.25 mg p.o. t.i.d. p.r.n. Letairis 5 mg p.o. daily. Atenolol 50 mg p.o. daily. Cetirizine 10 mg p.o. daily. Flonase 1 spray nasally at bedtime. Iron supplementation 1 p.o. daily. Icy Hot topically p.r.n. Montelukast sodium 10 mg p.o. at bedtime. Multivitamin p.o. daily. Paroxetine 40 mg p.o. daily. Tramadol 50 mg p.o. q.6 hours p.r.n., and warfarin 7.5 mg p.o. at bedtime. LABORATORY DATA: Showed a white blood cell count of 8.72, hemoglobin 9.7, hematocrit 31.3, platelets 103,000. PT and INR of 26.6 and 2.45. D-dimer of 4.62. Sodium of 136 , potassium 4.8, chloride 99, CO2 23, BUN of 68 with a creatinine of 2.4. Glucose was 37. Magnesium of 2.2. Total bilirubin of 1.90. AST of 35. Creatine kinase of 64. Troponin 0.[place] [address]. Urinalysis with negative nitrites, 2+ white blood cells, 4+ bacteria. A chest x-ray showed an apparent slight increase in the size of a known left upper lobe nodule, developing atelectasis or infiltrate in the right lower lobe with a small right effusion and cardiomegaly. EKG showed a left bundle branch block at 69. REVIEW OF SYSTEMS: She denied any fever, chills, blurred vision. She was positive for some dizziness, weakness, shortness of breath. A fall x2 this a.m. Denied any chest pain, coughing. She denied any abdominal pain, constipation, diarrhea, burning or hurting with urination. PHYSICAL EXAMINATION: She had a temperature of 97.5 degrees, pulse 76, respirations 18, blood pressure 108/62, saturating 94% on room air. GENERAL: This is a 71-year-old female who is lying in the bed, and answers questions appropriately. HEENT: Normocephalic and atraumatic. Pupils are equal, round, reactive to light. Extraocular movements are intact. Oropharynx and nares are clear. NECK: Supple. LUNGS: Clear to auscultation bilaterally with equal lung expansion and chest wall movement. HEART: With regular rate and rhythm. No murmurs, rubs, or gallops. ABDOMEN: Soft, nontender, and nondistended. Bowel sounds are present x4 quadrants. EXTREMITIES: No clubbing, cyanosis, or edema. NEUROLOGICAL: The cranial nerves 2-12 are grossly intact. ASSESSMENT: 1. Hypoglycemia in a known diabetes type 2 patient. 2. Acute kidney injury. 3. Urinary tract infection. 4. Elevated D-dimer. PLAN: She has been admitted to the medical unit at [place]. Placed on telemetry, diabetic diet. We are going to check a urine culture, a V/Q scan of her lungs. We will do fingerstick blood sugars q.[address] on D5 NS at 125. Neuro checks q.4 hours for 24 hours. Continue her home medications at this time. We will place her on Rocephin 1 gram IV q.24, and recheck a CBC and a CMP in the a.m. and a PT and INR in the a.m. Dictated by YOLANDE Joy for Jossue Giles MD cc: YOLANDE Joy MD Sarah E. Styers, MD pt examined, agree with above APENOT MTDD
[2017-05-07] MEDS: SINGULAIR PO SCH (21:09)
[2017-05-07] MEDS: XANAX PO PRN (21:09)
[2017-05-07] MEDS: COUMADIN PO SCH (21:09)
[2017-05-07] MEDS: FLONASE NAS SCH (21:10)
[2017-05-07] MEDS: ULTRAM PO PRN (21:10)
[2017-05-08] MEDS: ULTRAM PO PRN ×3 (03:11→20:43)
[2017-05-08 06:42] LABS: BASO% 0.1 % (0.0-0.8); EOS# 0.25 X1000 (0.0-0.7); EOS% 3.6 % (0.0-10.0); HEMATOCRIT 27.1 % (37.0-47.0); HEMOGLOBIN 8.3 g/dL (12.0-16.0); IMM GRAN# 0.02 X1000 (0.0-0.04); IMM GRAN% 0.3 % (0.0-0.5); INR 2.95 (0.86-1.15); LYMPH# 0.38 X1000 (1.2-3.4); LYMPH% 5.5 % (20.5-51.1); MANUAL DIFF NEEDED? YES; MCH 26.9 PG (27-31); MCHC 30.6 g/dL (33-37); MCV 87.7 FL (81-99); MONO# 0.29 X1000 (0.11-0.59); MONO% 4.2 % (1.7-9.3); MPV 12.5 FL (7.4-10.4); NEUT% 86.3 % (42.2-75.2); PLT 103 X1000 (130-400); PROTIME 30.6 Seconds (12.1-15.5); RBC 3.09 XMIL (4.2-5.4)
[2017-05-08 07:04] LABS: ALBUMIN 3.1 g/dL (3.5-5.0); CALCIUM 7.8 mg/dL (8.8-10.2); POTASSIUM 4.5 mmol/L (3.5-5.1); TOTAL BILIRUBIN 0.7 mg/dL (0.20-1.00); TOTAL PROTEIN 5.3 g/dL (6.3-8.3)
[2017-05-08] MEDS: ICAR-C PO SCH (08:23)
[2017-05-08] MEDS: TENORMIN PO SCH (08:23)
[2017-05-08] MEDS: PAXIL PO SCH (08:24)
[2017-05-08] MEDS: ZYRTEC PO SCH (08:24)
[2017-05-08] MEDS: PATIENT'S OWN MED PO SCH (08:48)
[2017-05-08] MEDS ORDERED: MULTI-VITAMIN PO SCH (09:00)
[2017-05-08 09:11] LABS: LYMPHS 5 % (21-51); MONO 2 % (1-9)
[2017-05-08] MEDS: XANAX PO PRN ×2 (09:16→20:43)
[2017-05-08] MEDS: THERA M PLUS PO SCH (09:37)
--- NOTE | 2017-05-08 12:52 | PROGRESS NOTE ---
DATE: 05/08/2017 SUBJECTIVE: The patient notes that she is feeling a little bit better. Denies any chest pain, palpitations, although states she is still very tired and fatigued. States she is having difficulty ambulating to the restroom without assistance. Denies any chest pain, palpitations. Denies any GI or issues otherwise. OBJECTIVE: Vital Signs: Reviewed. Temperature 97 degrees, pulse 89, respiratory rate 18, blood pressure 123/47, saturation 96% on 2 L. General: Patient is awake, alert, oriented. She is currently in no respiratory distress. Pleasant to talk with. Neck: Supple. CARDIOVASCULAR: Regular rate. Chest: Clear. Abdomen: Soft. Extremities: Moves all extremities. No edema. Neurologic: No focal changes. ASSESSMENT: 1. Hypoglycemia. Appears improved. Current blood sugar is 91. 2. Acute kidney injury. Creatinine and BUN both are slightly improved at 66 and 2.1. We will continue IV fluids. 3. Hyperbilirubinemia, resolved. 4. Acute hepatitis, resolved. 5. Mild protein calorie malnutrition, stable. 6. Systolic congestive heart failure, stable. 7. Anemia of chronic disease, stable. 8. Elevated D-dimer, likely chronic. Ventilation/perfusion was negative and her INR currently is 2.95, so she is certainly anticoagulated to prevent any further worsening of clotting. 9. Urinary tract infection. PLAN: We will continue patient on medications. We will recheck her labs in the a.m. to include CBC, CMP, magnesium and thyroid. We will continue her current medications, to include Rocephin for her urinary tract infection. Continue her Coumadin. Continue to follow her international normalized ratio daily. Hopefully patient can be discharged home, although currently she is quite fatigued. We will consult Logistics Vice President to assist with discharge planning as she certainly may need rehab. We will get Physical Therapy involved. cc: Arnoldo Chan MD
[2017-05-08] MEDS: ROCEPHIN 1 GM/NS 1 GM/50 ML IVPB IV SCH (14:15)
[2017-05-08] MEDS ORDERED: MAALOX PLUS LIQUID PO PRN (16:09)
[2017-05-08] MEDS ORDERED: NS 1,000 ML IV SCH (16:10)
[2017-05-08] MEDS: COUMADIN PO SCH (20:43)
[2017-05-08] MEDS: SINGULAIR PO SCH (20:43)
[2017-05-08] MEDS: FLONASE NAS SCH (20:43)
[2017-05-09 06:15] LABS: HEMATOCRIT 27.8 % (37.0-47.0); HEMOGLOBIN 8.4 g/dL (12.0-16.0); MCH 26.9 PG (27-31); MCHC 30.2 g/dL (33-37); MCV 89.1 FL (81-99); MPV 12.1 FL (7.4-10.4); RBC 3.12 XMIL (4.2-5.4)
[2017-05-09 06:42] LABS: ALBUMIN 3.2 g/dL (3.5-5.0); CALCIUM 7.8 mg/dL (8.8-10.2); MAGNESIUM 2.4 mg/dL (1.5-2.7); POTASSIUM 4.8 mmol/L (3.5-5.1); TOTAL BILIRUBIN 0.5 mg/dL (0.20-1.00); TOTAL PROTEIN 5.5 g/dL (6.3-8.3)
[2017-05-09 06:49] LABS: INR 3.72 (0.86-1.15); PROTIME 36.5 Seconds (12.1-15.5)
[2017-05-09] MEDS: TENORMIN PO SCH (09:58)
[2017-05-09] MEDS: PAXIL PO SCH (09:58)
[2017-05-09] MEDS: ZYRTEC PO SCH (09:59)
[2017-05-09] MEDS: ICAR-C PO SCH (09:59)
[2017-05-09] MEDS: THERA M PLUS PO SCH (09:59)
[2017-05-09] MEDS: PATIENT'S OWN MED PO SCH (10:00)
[2017-05-09] MEDS: XANAX PO PRN ×2 (10:12→18:35)
[2017-05-09] MEDS ORDERED: ANTIVERT PO PRN (15:29)
[2017-05-09] MEDS: ROCEPHIN 1 GM/NS 1 GM/50 ML IVPB IV SCH (15:38)
--- NOTE | 2017-05-09 15:55 | PROGRESS NOTE ---
DATE: 05/09/2017 SUBJECTIVE: The patient has no complaints except she is persistently weak. OBJECTIVE: Vital Signs: Blood pressure 120/64, heart rate 75, respiratory rate 18, temperature 97.7 degrees, 98% on 2 L. PROBLEM LIST: 1. Acute kidney injury. She appears to be improved. She was on Lateris and lisinopril. We held those. Her kidney function is down to 1.7. Creatinine 1.8. I think she is usually around 1.7, so overall improved. 2. Diabetes. Blood sugars are stable. In fact, now they are rising. I am going to put her on Lantus. I do not think metformin or glipizide is probably a good idea in her because of her renal insufficiency and her fluctuating renal function. I think she is going to run into trouble with that. Further diabetic med adjustment per PCP but right now I am just going to give her low-dose Lantus and see how she does. 3. Urinary tract infection, waiting on her urinary cultures. I believe she is on Rocephin at this point. This will be day 3. Urine cultures: No growth. DISPOSITION: Plan for rehab when stabilized, hopefully, on Thursday. cc: Jossue Giles MD
[2017-05-09] MEDS: HUMULIN R (PARKWAY) SUBQ SCH ×2 (18:34→21:09)
[2017-05-09] MEDS: LANTUS INSULIN (PARKWAY) SUBQ SCH (18:35)
[2017-05-09] MEDS: SINGULAIR PO SCH (21:06)
[2017-05-09] MEDS: ULTRAM PO PRN (21:06)
[2017-05-09] MEDS: FLONASE NAS SCH (21:09)
[2017-05-10 06:19] LABS: HEMATOCRIT 30.8 % (37.0-47.0); HEMOGLOBIN 9.3 g/dL (12.0-16.0); MCHC 30.2 g/dL (33-37); MCV 89.3 FL (81-99); MPV 12.3 FL (7.4-10.4); RBC 3.45 XMIL (4.2-5.4)
[2017-05-10] MEDS: HUMULIN R (PARKWAY) SUBQ SCH ×4 (06:37→20:04)
[2017-05-10 06:44] LABS: CALCIUM 8.6 mg/dL (8.8-10.2); POTASSIUM 4.8 mmol/L (3.5-5.1)
[2017-05-10] MEDS: TENORMIN PO SCH (08:02)
[2017-05-10] MEDS: ICAR-C PO SCH (08:02)
[2017-05-10] MEDS: PAXIL PO SCH (08:02)
[2017-05-10] MEDS: THERA M PLUS PO SCH (08:02)
[2017-05-10] MEDS: XANAX PO PRN ×2 (08:02→19:58)
[2017-05-10] MEDS: ZYRTEC PO SCH (08:03)
[2017-05-10] MEDS: PATIENT'S OWN MED PO SCH (08:04)
[2017-05-10] MEDS: LANTUS INSULIN (PARKWAY) SUBQ SCH (08:04)
[2017-05-10 11:14] LABS: OCCULT BLOOD 1 NEGATIVE (NEGATIVE)
[2017-05-10] MEDS: ROCEPHIN 1 GM/NS 1 GM/50 ML IVPB IV SCH (15:05)
[2017-05-10] MEDS: FLONASE NAS SCH (19:58)
[2017-05-10] MEDS: ULTRAM PO PRN (19:58)
[2017-05-10] MEDS: SINGULAIR PO SCH (19:58)
[2017-05-11] MEDS: FLONASE NAS SCH ×2 (06:25→21:14)
[2017-05-11] MEDS: SINGULAIR PO SCH ×2 (06:26→21:14)
[2017-05-11] MEDS: HUMULIN R (PARKWAY) SUBQ SCH ×4 (08:16→22:04)
[2017-05-11] MEDS: THERA M PLUS PO SCH (10:17)
[2017-05-11] MEDS: PAXIL PO SCH (10:17)
[2017-05-11] MEDS: LANTUS INSULIN (PARKWAY) SUBQ SCH (10:17)
[2017-05-11] MEDS: ZYRTEC PO SCH (10:17)
[2017-05-11] MEDS: PATIENT'S OWN MED PO SCH (10:18)
[2017-05-11] MEDS: TENORMIN PO SCH (10:18)
[2017-05-11] MEDS: ICAR-C PO SCH (10:18)
[2017-05-11] MEDS ORDERED: HUMALOG DOSE (PARKWAY) SUBQ SCH (11:00)
--- NOTE | 2017-05-11 13:44 | DISCHARGE SUMMARY ---
ADMISSION DATE: 05/07/2017 DISCHARGE DATE: 05/11/2017 DIAGNOSES: 1. Hypoglycemia, resolved. 2. Diabetes, type 2. 3. Acute kidney injury, resolved. 4. Chronic kidney disease with a baseline creatinine of 1.2 to 1.4. 5. Elevated D-dimer with negative V/Q scan. 6. Acute hepatitis, resolved. 7. Atrial fibrillation, on chronic anticoagulation. DIAGNOSTICS: 1. 05/07/2017 chest x-ray revealed a slight increase in the size of the left upper lobe parenchymal nodule. Malignancy is not excluded. 2. 05/07/2017 V/Q lung scan reveals no evidence of ventilation perfusion mismatch. There are no absolute perfusion defects. HOSPITAL COURSE: Ms. Juárez presented to the emergency room complaining of shortness of breath and weakness. After falling twice, she presented to the emergency room. She was found to be hypoglycemic with a blood sugar of 37 on arrival. Blood sugars have since remained in the 112 to looks like to about 250 range. She has had no further falls. She was found to be in acute kidney injury with a creatinine of 2.4. Her lisinopril was held. She was given gentle hydration and she is back down to 1.4 with her baseline being 1.2 to 1.4 over the last year or 18 months. INRs were followed for a target of 2-3 for atrial fibrillation. Her INR was noted to be 3.72 on 05/09/2017, therefore her warfarin was held. She will need to recheck PT/INR in the morning and then further instructions per the senior medical director. As her blood sugars are ranging in the looks like 200-280 range, she was started on Lantus 5 units. This will continue. Blood sugars can be monitored and any changes per the facility senior medical director. We will not start metformin or glipizide due to her renal insufficiency and fluctuating renal function. She did complain of some difficulty on urinating on admission. Urine culture revealed no pathogenic growth. She was given Rocephin IV during the hospitalization. She did receive 4 doses. Thankfully she has improved and she is ready to be discharged to rehab. PHYSICAL EXAMINATION: Cardiovascular: Regular rate and rhythm. S1 and S2 appreciated. Pulmonary: Breath sounds are clear with no increased work of breathing noted. Gastrointestinal: Abdomen is soft, nontender, nondistended. Bowel sounds in all 4 quadrants. Extremities: No clubbing, cyanosis, or edema. Calves are nontender. Pulses are palpable x4. Neurologic: She is alert and oriented x3. DISCHARGE MEDICATIONS: Ultram 50 mg q.6 h. p.r.n., Paxil 40 mg daily, Thera Plus 1 daily, Singulair 10 at bedtime, Antivert 25 mg p.o. t.i.d. p.r.n., Icar C 1 daily, Letairis 5 mg daily, Tenormin 50 mg daily, Xanax 0.25 t.i.d. p.r.n., Lantus insulin 5 units subcutaneous daily, Humulin insulin sliding scale for blood sugar 200-249 2 units subcutaneous, blood sugar 250-299 4 units subcutaneously, 300-349 6 units subcutaneously, greater than 350 8 units subcutaneous and call MD if repeat blood sugar is greater than 350. If less than 199, no insulin. DISCHARGE DIET: Diabetic. DISCHARGE VITAL SIGNS: Blood pressure is 151/61, heart rate of 68, respirations 16, temperature 98.3 degrees, oxygen saturation 95% on 2 L nasal cannula. The patient has a known left upper lobe parenchymal nodule for which she is being followed by Dr. Ni on an outpatient basis having a PET scan, as well as follow up chest CT scans. She will continue to follow as scheduled with Dr. Ni. She is being discharged to rehab in stable condition. TIME SPENT: This is a greater than 30 minute discharge. Dictated by YOLANDE Mckeon for Arnoldo Chan MD cc: YOLANDE Mckeon MD
--- NOTE | 2017-05-11 14:00 | Diag Imaging Result Doc PS360 ---
EXAM: CHEST-2 VIEWS HISTORY: LOMBARDO, TECHNIQUE: PA and lateral chest COMMENT: There is a pulmonary nodule/mass in the left upper lobe which was also present on the previous study. There is blunting of the right costophrenic angle. This is probably due to fibrosis. There is ill-defined opacity in the left lower lobe and to some extent the right base. These abnormalities were also present on the previous study. There has been kyphoplasty in the T7 vertebral body and there appears to be partial collapse of T6. IMPRESSION: Pleural and parenchymal fibrosis. Possibility of atelectasis in the lung bases cannot be excluded. Left upper lobe rounded opacity essentially unchanged since 05/07/2017. Electronically signed by Seymour Hutson 05/11/2017 1:57 PM
[2017-05-11] MEDS ORDERED: LASIX IV ONE (14:01)
[2017-05-11] MEDS ORDERED: NS 250 ML ONE (14:37)
[2017-05-11] MEDS: ROCEPHIN 1 GM/NS 1 GM/50 ML IVPB IV SCH (14:45)
[2017-05-11] MEDS: ULTRAM PO PRN (21:20)
[2017-05-11] MEDS: XANAX PO PRN (21:20)
[2017-05-12] MEDS: HUMULIN R (PARKWAY) SUBQ SCH ×2 (06:15→11:33)
[2017-05-12 08:02] VITALS: BP 155/62
[2017-05-12] MEDS: PAXIL PO SCH (08:57)
[2017-05-12] MEDS: TENORMIN PO SCH (08:59)
[2017-05-12] MEDS: ICAR-C PO SCH (09:00)
[2017-05-12] MEDS: THERA M PLUS PO SCH (09:00)
[2017-05-12] MEDS: ZYRTEC PO SCH (09:00)
[2017-05-12] MEDS: PATIENT'S OWN MED PO SCH (09:01)
[2017-05-12] MEDS: LANTUS INSULIN (PARKWAY) SUBQ SCH (09:01)
[2017-05-12] MEDS: ULTRAM PO PRN ×2 (09:06→15:12)
[2017-05-12] MEDS: XANAX PO PRN ×2 (09:06→15:13)
[2017-05-12] MEDS ORDERED: COUMADIN PO ONE (09:36)
[2017-05-12] MEDS ORDERED: LASIX PO SCH (09:45)
[2017-05-12 09:46] LABS: CALCIUM 9.4 mg/dL (8.8-10.2); POTASSIUM 4.3 mmol/L (3.5-5.1)
[2017-05-12 09:52] LABS: INR 1.65 (0.86-1.15); PROTIME 19.7 Seconds (12.1-15.5)
--- NOTE | 2017-05-12 13:22 | DISCHARGE SUMMARY ---
ADMISSION DATE: 05/07/2017 DISCHARGE DATE: ADDENDUM: Ms. Juárez was given IV Lasix on the and she did diurese it looks like 900. She was -660. She stated that she no longer feels bloated in her abdomen nor is she short of breath with exertion. She no longer feels that she needs oxygen. Her saturations are 95-98% on room air. Her INR was 1.65 today. We will restart her warfarin at 7.5 mg. INR will be drawn on the and call to facility director for warfarin dosing as well as redraw. She will receive 7.5 mg tomorrow night, the . Facility director will dose further per INR. We did restart her Lasix 40 mg daily. This will start on the . She will be discharged to rehab in stable condition. Dictated by YOLANDE Mckeon for Arnoldo Chan MD cc: YOLANDE Mckeon MD [facility]
[2017-05-12] MEDS: ROCEPHIN 1 GM/NS 1 GM/50 ML IVPB IV SCH (14:40)
[2017-05-13] MEDS ORDERED: COUMADIN PO SCH (21:00)
== END 2017-05-12 15:30 ==
LOC: P.ED 07:55 → SUATTDRO 13:03 → P.MEDSURG 13:03
PROVIDERS: ATTEND Family Medicine